=== PATIENT | female | born 1940 | race Two or more races ===

== ENCOUNTER 2021-01-07 11:06 | Emergency (ER) | payer OTHER ==
[~2021-01-07] VITALS: Ht 157.5 cm; Wt 81.6 kg
[~2021-01-07 11:06] MED LIST: ALEN70TA2; AMLO-489; BECL80AE9; BENA40TA; LEVO150T10; METO1TAB9; PREG75CA PO; PREMARIN; SIMV-8; TRAM50TA2
[2021-01-07] MEDS ORDERED: LORazepam 2MG/ML-1ML VIAL IV ONE (11:15)
[2021-01-07] MEDS ORDERED: SODIUM CHLORIDE 0.9% 1,000 ML IV ONE (11:15)
[2021-01-07 11:21] VITALS: BP 137/67
[2021-01-07 12:17] LABS: Basophils # (auto) 0 10 ^3/uL (0-0.2); Basophils % (auto) 0.5 % (0.0-2.0); Eosinophils # (auto) 0.1 10 ^3/uL (0-0.8); Eosinophils % (auto) 0.7 % (0.0-7.0); Hematocrit 41.5 % (36.0-46.0); Hemoglobin 14.9 g/dL (12.2-16.2); Lymphocytes # (auto) 1.7 10 ^3/uL (0.4-5.4); Lymphocytes % (auto) 18.2 % (10.0-50.0); Mean Corpuscular Hemoglobin 30.8 pg (28.0-32.0); Mean Corpuscular Hgb Conc. 35.8 g/dL (32.0-36.0); Monocytes # (auto) 0.9 10 ^3/uL (0-1.3); Monocytes % (auto) 9.8 % (0.0-12.0); Neutrophils # (auto) 6.7 10 ^3/uL (1.6-8.6); Neutrophils % (auto) 70.8 % (37.0-80.0); Platelet Count (auto) 312 10^3/uL (140-450); Red Blood Cells 4.82 10^6/uL (4.0-5.20); Red Cell Distribution Width 13.9 % (11.8-14.3); White Blood Cell 9.5 10^3/uL (4.4-10.8)
[2021-01-07 12:25] LABS: Albumin 3.9 g/dL (3.4-5.0); Anion Gap 14 (5-15); Blood Urea Nitrogen 17 mg/dL (7-18); Calcium 9.5 mg/dL (8.5-10.1); Carbon Dioxide 22 mmol/L (21-32); Chloride 96 mmol/L (98-107); Glucose 229 mg/dL (74-106); Sodium 132 mmol/L (136-145)
[2021-01-07 12:32] LABS: Alanine Aminotransferase 26 U/L (13-56); Alkaline Phosphatase 67 U/L (45-117); Aspartate Aminotransferase 24 U/L (15-37); BUN/Creatinine Ratio 16.7; Bilirubin, Total 0.6 mg/dL (0.2-1.0); GFR African American 67 mL/min; GFR Non-African American 56 mL/min; Total Protein 8.2 g/dL (6.4-8.2)
== END 2021-01-07 13:11 | disposition left against medical advice (07) ==
LOC: ER 11:06 → EDBD 11:06 → EDUNIT# 11:06 → ER 13:11
DX: F41.9 Anxiety disorder, unspecified (principal); E11.9 Type 2 diabetes mellitus without complications; E78.5 Hyperlipidemia, unspecified; I10 Essential (primary) hypertension; R42 Dizziness and giddiness
CPT/HCPCS: 36415; 80053; 84484; 85025; 85049; 93005; 99284; J7030

== ENCOUNTER 2021-04-15 23:48 | Inpatient (IN) | payer OTHER ==
[~2021-04-15] VITALS: Ht 165.1 cm; Wt 73.9 kg
[2021-04-16 01:03] LABS: Basophils # (auto) 0.2 10 ^3/uL (0-0.2); Basophils % (auto) 2.5 % (0.0-2.0); Eosinophils # (auto) 0.2 10 ^3/uL (0-0.8); Eosinophils % (auto) 1.9 % (0.0-7.0); Hematocrit 42.3 % (36.0-46.0); Lymphocytes # (auto) 2.4 10 ^3/uL (0.4-5.4); Lymphocytes % (auto) 24.7 % (10.0-50.0); Mean Corpuscular Hgb Conc. 35.4 g/dL (32.0-36.0); Mean Corpuscular Volume 87.6 fL (80.0-100.0); Monocytes # (auto) 0.6 10 ^3/uL (0-1.3); Monocytes % (auto) 5.8 % (0.0-12.0); Neutrophils # (auto) 6.4 10 ^3/uL (1.6-8.6); Neutrophils % (auto) 65.1 % (37.0-80.0); Nucleated Red Blood Cells % 0.1 %; Red Blood Cells 4.84 10^6/uL (4.0-5.20); Red Cell Distribution Width 15.4 % (11.8-14.3); White Blood Cell 9.9 10^3/uL (4.4-10.8)
[2021-04-16 01:30] LABS: Anion Gap 16 (5-15); Blood Urea Nitrogen 9 mg/dL (7-18); Calcium 10.6 mg/dL (8.5-10.1); Carbon Dioxide 19 mmol/L (21-32); Chloride 98 mmol/L (98-107); Glucose 246 mg/dL (74-106); Sodium 133 mmol/L (136-145)
[2021-04-16 01:32] LABS: Alanine Aminotransferase 33 U/L (13-56); Aspartate Aminotransferase 25 U/L (15-37); BUN/Creatinine Ratio 8.8; GFR African American 67 mL/min; GFR Non-African American 56 mL/min
[2021-04-16 01:36] LABS: Alkaline Phosphatase 70 U/L (45-117); Bilirubin, Total 0.7 mg/dL (0.2-1.0); Total Protein 8.5 g/dL (6.4-8.2)
[2021-04-16 01:47] LABS: Potassium 2.8 mmol/L (3.5-5.1)
[2021-04-16] MEDS ORDERED: METOCLOPRAMIDE HCL 5MG/ml INJ 2ml VIAL IV STA (03:20)
[2021-04-16] MEDS ORDERED: ACETAMINOPHEN 325 MG TAB PO STA (03:42)
[2021-04-16] MEDS: POTASSIUM CHL 20MEQ/100ML 100 ML IV SCH ×4 (05:41→17:50)
[2021-04-16] MEDS ORDERED: HYDROcodone-ACET 5/325MG TAB ONE (06:50)
[2021-04-16] MEDS ORDERED: SODIUM CHLORIDE 0.9% 1,000 ML IV ONE ×2 (11:30→13:30)
[2021-04-16] MEDS ORDERED: MORPHINE SULFATE INJECTION 2 MG/ML SYRG IV PRN ×3 (11:30→13:30)
[2021-04-16] MEDS ORDERED: POTASSIUM CHL 20MEQ/100ML 100 ML IV SCH (11:30)
[2021-04-16] MEDS ORDERED: NITROGLYCERIN 0.4 MG SL TAB SL PRN ×2 (11:30→13:30)
[2021-04-16 13:09] LABS: Albumin 3.1 g/dL (3.4-5.0); BUN/Creatinine Ratio 10.7; Potassium 3.5 mmol/L (3.5-5.1)
[2021-04-16 13:12] LABS: Bilirubin, Total 0.4 mg/dL (0.2-1.0); Total Protein 6.9 g/dL (6.4-8.2)
[2021-04-16] MEDS: MAGNESIUM SULFATE 1GM/100ML 100 ML IV ONE ×2 (13:23→14:58)
[2021-04-16] MEDS ORDERED: ACETAMINOPHEN 325 MG TAB PO PRN (13:30)
[2021-04-16] MEDS ORDERED: TEMAZEPAM 15 MG CAP PO PRN (13:30)
[2021-04-16] MEDS ORDERED: ONDANSETRON HCL 4 MG/2 ML VIAL IV PRN (13:30)
[2021-04-16] MEDS ORDERED: SALINE 0.65 % NASAL SPRAY 45ML BOTTLE EACHNOSTRI ONE (13:30)
[2021-04-16] MEDS ORDERED: ENOXAPARIN SOD 40 MG/0.4 ML SYRINGE SC ONE (13:30)
[2021-04-16] MEDS ORDERED: DOCUSATE SOD 100 MG CAP PO PRN (13:30)
[2021-04-16] MEDS ORDERED: METOPROLOL SUCCINATE XL 50 MG TAB PO ONE (13:30)
[2021-04-16] MEDS ORDERED: hydrALAZINE HCL 20 MG/ML VL IV PRN (13:30)
[2021-04-16] MEDS ORDERED: DEXTROSE (50%) 50ML SYRG IV PRN (13:30)
[2021-04-16 15:31] LABS: Urine Bacteria FEW /hpf (None Seen); Urine Blood Negative /uL (Negative); Urine WBC 2 /hpf (0 - 5)
[2021-04-16] MEDS: SOD CHL 0.9%/ KCL 20MEQ 1,000 ML IV SCH (16:20)
[2021-04-16 17:23] VITALS: BP 148/81
[2021-04-16] MEDS ORDERED: GABA100C9 PO (17:57)
[2021-04-16] MEDS ORDERED: HYDR12.56 PO (17:57)
[2021-04-16] MEDS ORDERED: VENL1TAB97 PO (17:57)
[2021-04-16] MEDS ORDERED: ROSU40TA PO (17:57)
[2021-04-16] MEDS ORDERED: LEVO100T8 PO (17:57)
[2021-04-16] MEDS ORDERED: SITA100T7 PO (17:57)
[2021-04-16] MEDS ORDERED: AMLO-489 PO (17:57)
[2021-04-16] MEDS ORDERED: CLON0.1T PO (17:57)
[2021-04-16] MEDS ORDERED: PRED20TA2 PO (17:57)
[2021-04-16] MEDS ORDERED: FERR324T25 PO (17:57)
[2021-04-16] MEDS: SALINE 0.65 % NASAL SPRAY 45ML BOTTLE EACHNOSTRI SCH ×2 (18:00→23:06)
[2021-04-16] MEDS ORDERED: POTASSIUM CHL 20 Meq TABLET PO ONE (18:15)
[2021-04-16] MEDS: InsuLIN REG 1unit/0.01ml Soln (100units/ml) SC SCH ×2 (18:17→23:07)
[2021-04-16] MEDS: ACCU-CHEK COMFORT CURVE STRIP VI SCH ×2 (18:23→23:08)
[2021-04-16] MEDS: CALCIUM W/VIT D (600MG/400IU) TAB PO SCH (18:35)
[2021-04-16] MEDS: FUROSEMIDE 20 MG/2 ML VIAL IV SCH (18:35)
[2021-04-16] MEDS ORDERED: AZITHROMYCIN 500MG/ 250ML 250 ML IV ONE (19:45)
[2021-04-16 22:00] VITALS: BP 113/62
[2021-04-16 22:00] LABS: Alcohol, Urine < 3.0 mg/dL (0-10); Amphetamine Screen, Urine NEGATIVE (NEGATIVE); Barbiturate Scree,Urine NEGATIVE (NEGATIVE); Benzodiazephine Screen, Urine NEGATIVE (NEGATIVE); Cannabinoid Screen, Urine NEGATIVE (NEGATIVE); Cocaine Screen, Urine NEGATIVE (NEGATIVE); Creatinine, Urine 22 mg/dL (30.0-125.0); Opiate Scree,Urine NEGATIVE (NEGATIVE); Phencyclidine Screen, Urine NEGATIVE (NEGATIVE); Sodium Urine 129 mmol/L (40-220)
[2021-04-16] MEDS: FAMOTIDINE (10MG/ML) 2ML VL IV SCH (23:05)
[2021-04-17] MEDS: SOD CHL 0.9%/ KCL 20MEQ 1,000 ML IV SCH ×3 (01:51→23:35)
[2021-04-17] MEDS: HYDROcodone-ACET 5/325MG TAB PO PRN ×2 (02:40→21:34)
[2021-04-17 05:30] VITALS: BP 118/66
[2021-04-17] MEDS: SALINE 0.65 % NASAL SPRAY 45ML BOTTLE EACHNOSTRI SCH ×4 (06:00→21:34)
[2021-04-17] MEDS: FUROSEMIDE 20 MG/2 ML VIAL IV SCH ×2 (06:19→18:22)
[2021-04-17] MEDS: InsuLIN REG 1unit/0.01ml Soln (100units/ml) SC SCH ×4 (06:19→21:36)
[2021-04-17 06:20] LABS: Basophils # (auto) 0.1 10 ^3/uL (0-0.2); Basophils % (auto) 0.8 % (0.0-2.0); Eosinophils # (auto) 0.1 10 ^3/uL (0-0.8); Eosinophils % (auto) 2.1 % (0.0-7.0); Hemoglobin 12.7 g/dL (12.2-16.2); Lymphocytes # (auto) 2.3 10 ^3/uL (0.4-5.4); Lymphocytes % (auto) 33.2 % (10.0-50.0); Mean Corpuscular Hemoglobin 30.1 pg (28.0-32.0); Mean Corpuscular Hgb Conc. 34.4 g/dL (32.0-36.0); Mean Corpuscular Volume 87.5 fL (80.0-100.0); Monocytes # (auto) 0.5 10 ^3/uL (0-1.3); Neutrophils # (auto) 3.8 10 ^3/uL (1.6-8.6); Neutrophils % (auto) 55.9 % (37.0-80.0); Nucleated Red Blood Cells % 0.1 %; Red Blood Cells 4.23 10^6/uL (4.0-5.20); Red Cell Distribution Width 15.3 % (11.8-14.3); White Blood Cell 6.8 10^3/uL (4.4-10.8)
[2021-04-17] MEDS: ACCU-CHEK COMFORT CURVE STRIP VI SCH ×4 (06:22→21:35)
[2021-04-17 06:32] LABS: INR 1.04 (0.9-1.15); Partial Thromboplastin Time 26.9 sec (23.6-33.0)
[2021-04-17 06:33] LABS: % Iron Saturation 13.9 % (15-50)
[2021-04-17 06:38] LABS: Chloride 104 mmol/L (98-107); Potassium 3.5 mmol/L (3.5-5.1); Sodium 137 mmol/L (136-145)
[2021-04-17 06:49] LABS: Alanine Aminotransferase 26 U/L (13-56); Albumin 3.1 g/dL (3.4-5.0); Alkaline Phosphatase 55 U/L (45-117); Anion Gap 7 (5-15); Aspartate Aminotransferase 20 U/L (15-37); BUN/Creatinine Ratio 18.8; Bilirubin, Total 0.4 mg/dL (0.2-1.0); Blood Urea Nitrogen 12 mg/dL (7-18); Calcium 8.6 mg/dL (8.5-10.1); Carbon Dioxide 26 mmol/L (21-32); Creatine Kinase IFCC 21 U/L (26-192); GFR African American 115 mL/min; GFR Non-African American 95 mL/min; Glucose 129 mg/dL (74-106); Magnesium 2.5 mg/dL (1.6-2.6); Phosphorus 2.8 mg/dL (2.5-4.90); Total Protein 6.4 g/dL (6.4-8.2); Uric Acid 2.5 mg/dL (2.6-6.0)
[2021-04-17 09:08] VITALS: BP 118/67
[2021-04-17] MEDS: AZITHROMYCIN 500MG/ 250ML 250 ML IV SCH (09:24)
[2021-04-17] MEDS: FAMOTIDINE (10MG/ML) 2ML VL IV SCH ×2 (09:24→21:34)
[2021-04-17] MEDS: CALCIUM W/VIT D (600MG/400IU) TAB PO SCH ×2 (09:24→18:22)
[2021-04-17] MEDS: ISOSORBIDE MONONITRATE ER 60 MG TAB PO SCH (09:25)
[2021-04-17] MEDS: BENAZEPRIL HCL 10 MG TAB PO SCH (09:25)
[2021-04-17] MEDS: ENOXAPARIN SOD 40 MG/0.4 ML SYRINGE SC SCH (09:26)
[2021-04-17] MEDS: METOPROLOL SUCCINATE XL 50 MG TAB PO SCH (09:26)
[2021-04-17] MEDS ORDERED: CALCIUM W/VIT D (600MG/400IU) TAB PO SCH (10:00)
[2021-04-17 13:06] VITALS: BP 114/74
[2021-04-17 17:00] VITALS: BP 132/69
[2021-04-17 21:00] VITALS: BP 132/69
[2021-04-17 22:00] VITALS: BP 106/57
[2021-04-18 05:00] VITALS: BP 129/66
[2021-04-18] MEDS: FUROSEMIDE 20 MG/2 ML VIAL IV SCH ×2 (05:53→17:51)
[2021-04-18] MEDS: SALINE 0.65 % NASAL SPRAY 45ML BOTTLE EACHNOSTRI SCH ×4 (05:53→21:38)
[2021-04-18] MEDS: ACCU-CHEK COMFORT CURVE STRIP VI SCH ×4 (05:54→21:38)
[2021-04-18] MEDS: InsuLIN REG 1unit/0.01ml Soln (100units/ml) SC SCH ×4 (05:57→21:54)
[2021-04-18 06:07] LABS: BUN/Creatinine Ratio 20.7; Calcium 8.9 mg/dL (8.5-10.1); Magnesium 2.2 mg/dL (1.6-2.6); Potassium 4.1 mmol/L (3.5-5.1)
[2021-04-18 06:37] LABS: Hematocrit 38.4 % (36.0-46.0); Hemoglobin 13.1 g/dL (12.2-16.2); Mean Corpuscular Hemoglobin 30.3 pg (28.0-32.0); Mean Corpuscular Volume 89.1 fL (80.0-100.0); Red Blood Cells 4.31 10^6/uL (4.0-5.20); Red Cell Distribution Width 15.1 % (11.8-14.3); White Blood Cell 8.7 10^3/uL (4.4-10.8)
[2021-04-18 06:46] LABS: Basophils % (manual) 0 (0.0-2.0); Blast Cells 0; Myelocytes % 0; Promyelocytes % 0; Reactive Lymphocytes 0
[2021-04-18 09:00] VITALS: BP 124/73
[2021-04-18] MEDS: FAMOTIDINE (10MG/ML) 2ML VL IV SCH ×2 (10:00→21:38)
[2021-04-18] MEDS: AZITHROMYCIN 500MG/ 250ML 250 ML IV SCH (10:00)
[2021-04-18] MEDS: CALCIUM W/VIT D (600MG/400IU) TAB PO SCH ×2 (10:00→17:51)
[2021-04-18] MEDS: ISOSORBIDE MONONITRATE ER 60 MG TAB PO SCH (10:01)
[2021-04-18] MEDS: BENAZEPRIL HCL 10 MG TAB PO SCH (10:01)
[2021-04-18] MEDS: METOPROLOL SUCCINATE XL 50 MG TAB PO SCH (10:01)
[2021-04-18] MEDS: ENOXAPARIN SOD 40 MG/0.4 ML SYRINGE SC SCH (10:02)
[2021-04-18 11:50] LABS: Band Neutrophils % (manual) 4; Eosinophils % (manual) 2 (0-7); Lymphocytes % (manual) 26 (10.0-50.0); Metamyelocytes % 1; Monocytes % (manual) 7 (0-12)
[2021-04-18 13:00] VITALS: BP 105/60
[2021-04-18] MEDS ORDERED: LEVOTHYROXINE SODIUM 100 MCG/5 ML INJ IV ONE (15:45)
[2021-04-18 17:00] VITALS: BP 105/61
[2021-04-18 22:00] VITALS: BP 106/65
[2021-04-18] MEDS: SOD CHL 0.9%/ KCL 20MEQ 1,000 ML IV SCH (23:20)
[2021-04-19 05:00] VITALS: BP 128/71
[2021-04-19] MEDS: SALINE 0.65 % NASAL SPRAY 45ML BOTTLE EACHNOSTRI SCH ×4 (06:02→21:39)
[2021-04-19] MEDS: FUROSEMIDE 20 MG/2 ML VIAL IV SCH ×2 (06:02→18:00)
[2021-04-19] MEDS: InsuLIN REG 1unit/0.01ml Soln (100units/ml) SC SCH ×4 (06:03→21:40)
[2021-04-19] MEDS: CALCIUM W/VIT D (600MG/400IU) TAB PO SCH ×2 (06:03→18:20)
[2021-04-19] MEDS: ACCU-CHEK COMFORT CURVE STRIP VI SCH ×4 (06:04→21:39)
[2021-04-19] MEDS ORDERED: LEVOTHYROXINE SODIUM 50 MCG TAB PO SCH (07:00)
[2021-04-19] MEDS ORDERED: LEVOTHYROXINE SODIUM 25 MCG TAB PO SCH (07:00)
[2021-04-19] MEDS: SOD CHL 0.9%/ KCL 20MEQ 1,000 ML IV SCH (08:10)
[2021-04-19 09:00] VITALS: BP 124/79
[2021-04-19 10:07] LABS: Free T4 (Free Thyroxine) 0.37 ng/dL (0.89-1.76)
[2021-04-19 10:08] LABS: Free T3 1.2 pg/mL (2.3-4.2)
[2021-04-19] MEDS: FAMOTIDINE (10MG/ML) 2ML VL IV SCH ×2 (10:39→21:39)
[2021-04-19] MEDS: AZITHROMYCIN 500MG/ 250ML 250 ML IV SCH (10:40)
[2021-04-19] MEDS: ISOSORBIDE MONONITRATE ER 60 MG TAB PO SCH (10:44)
[2021-04-19] MEDS: BENAZEPRIL HCL 10 MG TAB PO SCH (10:44)
[2021-04-19] MEDS: ENOXAPARIN SOD 40 MG/0.4 ML SYRINGE SC SCH (10:45)
[2021-04-19] MEDS: METOPROLOL SUCCINATE XL 50 MG TAB PO SCH (10:46)
[2021-04-19 13:00] VITALS: BP 97/56
[2021-04-19] MEDS: HYDROcodone-ACET 5/325MG TAB PO PRN (15:29)
[2021-04-19 17:00] VITALS: BP 119/74
[2021-04-19 22:00] VITALS: BP 120/76
[2021-04-20 05:30] VITALS: BP 117/65
[2021-04-20 05:42] LABS: Basophils # (auto) 0 10 ^3/uL (0-0.2); Basophils % (auto) 0.8 % (0.0-2.0); Eosinophils # (auto) 0.2 10 ^3/uL (0-0.8); Hematocrit 32.1 % (36.0-46.0); Hemoglobin 11.4 g/dL (12.2-16.2); Lymphocytes # (auto) 1.9 10 ^3/uL (0.4-5.4); Lymphocytes % (auto) 33.7 % (10.0-50.0); Mean Corpuscular Hemoglobin 31.1 pg (28.0-32.0); Mean Corpuscular Hgb Conc. 35.4 g/dL (32.0-36.0); Mean Corpuscular Volume 87.8 fL (80.0-100.0); Monocytes # (auto) 0.5 10 ^3/uL (0-1.3); Monocytes % (auto) 8.3 % (0.0-12.0); Neutrophils # (auto) 3.1 10 ^3/uL (1.6-8.6); Neutrophils % (auto) 54.2 % (37.0-80.0); Red Blood Cells 3.66 10^6/uL (4.0-5.20); Red Cell Distribution Width 15.3 % (11.8-14.3); White Blood Cell 5.6 10^3/uL (4.4-10.8)
[2021-04-20 06:03] LABS: Potassium 3.7 mmol/L (3.5-5.1)
[2021-04-20] MEDS: SOD CHL 0.9%/ KCL 20MEQ 1,000 ML IV SCH ×2 (06:06→10:50)
[2021-04-20] MEDS: SALINE 0.65 % NASAL SPRAY 45ML BOTTLE EACHNOSTRI SCH ×4 (06:06→21:31)
[2021-04-20] MEDS: LEVOTHYROXINE SODIUM 100 MCG TAB PO SCH (06:07)
[2021-04-20] MEDS: FUROSEMIDE 20 MG/2 ML VIAL IV SCH ×2 (06:07→18:39)
[2021-04-20] MEDS: ACCU-CHEK COMFORT CURVE STRIP VI SCH ×4 (06:07→21:35)
[2021-04-20] MEDS: InsuLIN REG 1unit/0.01ml Soln (100units/ml) SC SCH ×4 (06:09→21:35)
[2021-04-20 06:12] LABS: BUN/Creatinine Ratio 16.9; Magnesium 2.2 mg/dL (1.6-2.6)
[2021-04-20 09:00] VITALS: BP 120/65
[2021-04-20] MEDS: FAMOTIDINE (10MG/ML) 2ML VL IV SCH ×2 (10:12→21:31)
[2021-04-20] MEDS: CALCIUM W/VIT D (600MG/400IU) TAB PO SCH ×2 (10:12→18:40)
[2021-04-20] MEDS: METOPROLOL SUCCINATE XL 50 MG TAB PO SCH (10:13)
[2021-04-20] MEDS: BENAZEPRIL HCL 10 MG TAB PO SCH (10:13)
[2021-04-20] MEDS: ISOSORBIDE MONONITRATE ER 60 MG TAB PO SCH (10:13)
[2021-04-20] MEDS: ENOXAPARIN SOD 40 MG/0.4 ML SYRINGE SC SCH (12:49)
[2021-04-20 13:00] VITALS: BP 133/67
[2021-04-20] MEDS ORDERED: LORazepam 2MG/ML-1ML VIAL IV PRN (21:15)
[2021-04-20 22:00] VITALS: BP 106/50
[2021-04-21] MEDS: SOD CHL 0.9%/ KCL 20MEQ 1,000 ML IV SCH ×2 (00:08→22:21)
[2021-04-21 01:40] VITALS: BP 106/50
[2021-04-21 04:48] VITALS: BP 104/49
[2021-04-21] MEDS: SALINE 0.65 % NASAL SPRAY 45ML BOTTLE EACHNOSTRI SCH ×4 (06:21→22:22)
[2021-04-21] MEDS: InsuLIN REG 1unit/0.01ml Soln (100units/ml) SC SCH ×4 (06:27→22:27)
[2021-04-21] MEDS: LEVOTHYROXINE SODIUM 100 MCG TAB PO SCH (06:28)
[2021-04-21] MEDS: FUROSEMIDE 20 MG/2 ML VIAL IV SCH ×2 (06:32→18:36)
[2021-04-21] MEDS: ACCU-CHEK COMFORT CURVE STRIP VI SCH ×4 (06:32→22:28)
[2021-04-21 09:00] VITALS: BP 118/62
[2021-04-21] MEDS: FAMOTIDINE (10MG/ML) 2ML VL IV SCH ×2 (10:11→22:22)
[2021-04-21] MEDS: CALCIUM W/VIT D (600MG/400IU) TAB PO SCH ×2 (10:11→18:36)
[2021-04-21] MEDS: METOPROLOL SUCCINATE XL 50 MG TAB PO SCH (10:14)
[2021-04-21] MEDS: BENAZEPRIL HCL 10 MG TAB PO SCH (10:14)
[2021-04-21] MEDS: ENOXAPARIN SOD 40 MG/0.4 ML SYRINGE SC SCH (10:15)
[2021-04-21] MEDS: ISOSORBIDE MONONITRATE ER 60 MG TAB PO SCH (10:16)
[2021-04-21 13:00] VITALS: BP 140/35
[2021-04-21 17:00] VITALS: BP 104/65
[2021-04-21 21:35] VITALS: BP 118/68
[2021-04-21] MEDS: DONEPEZIL HYDROCHLORIDE 5 MG TAB PO SCH (22:23)
[2021-04-22] MEDS: SOD CHL 0.9%/ KCL 20MEQ 1,000 ML IV SCH ×2 (02:42→23:49)
[2021-04-22 04:48] VITALS: BP 100/56
[2021-04-22] MEDS ORDERED: ALENDRONATE SODIUM 10 MG TAB PO SCH (06:00)
[2021-04-22] MEDS: SALINE 0.65 % NASAL SPRAY 45ML BOTTLE EACHNOSTRI SCH ×4 (06:28→21:40)
[2021-04-22] MEDS: FUROSEMIDE 20 MG/2 ML VIAL IV SCH ×2 (06:28→18:00)
[2021-04-22] MEDS: LEVOTHYROXINE SODIUM 100 MCG TAB PO SCH (06:29)
[2021-04-22] MEDS: ACCU-CHEK COMFORT CURVE STRIP VI SCH ×4 (06:30→21:58)
[2021-04-22] MEDS: InsuLIN REG 1unit/0.01ml Soln (100units/ml) SC SCH ×4 (06:31→22:01)
[2021-04-22 09:00] VITALS: BP 112/45
[2021-04-22] MEDS: CALCIUM W/VIT D (600MG/400IU) TAB PO SCH ×2 (10:30→18:00)
[2021-04-22] MEDS: FAMOTIDINE (10MG/ML) 2ML VL IV SCH ×2 (10:30→21:40)
[2021-04-22] MEDS: BENAZEPRIL HCL 10 MG TAB PO SCH (10:34)
[2021-04-22] MEDS: ISOSORBIDE MONONITRATE ER 60 MG TAB PO SCH (10:34)
[2021-04-22] MEDS: METOPROLOL SUCCINATE XL 50 MG TAB PO SCH (10:35)
[2021-04-22] MEDS: ENOXAPARIN SOD 40 MG/0.4 ML SYRINGE SC SCH (10:35)
[2021-04-22 13:00] VITALS: BP 113/59
[2021-04-22 17:00] VITALS: BP 115/64
[2021-04-22] MEDS ORDERED: LORazepam 2MG/ML-1ML VIAL IV PRN (20:15)
[2021-04-22] MEDS ORDERED: VENLAFAXINE HCL 37.5MG TABLET PO ONE (20:30)
[2021-04-22] MEDS: DONEPEZIL HYDROCHLORIDE 5 MG TAB PO SCH (21:39)
[2021-04-22 22:00] VITALS: BP 107/54
[2021-04-23 05:00] VITALS: BP 125/60
[2021-04-23] MEDS: SALINE 0.65 % NASAL SPRAY 45ML BOTTLE EACHNOSTRI SCH ×4 (05:25→21:57)
[2021-04-23] MEDS: FUROSEMIDE 20 MG/2 ML VIAL IV SCH (05:26)
[2021-04-23] MEDS: SOD CHL 0.9%/ KCL 20MEQ 1,000 ML IV SCH (05:30)
[2021-04-23] MEDS: ACCU-CHEK COMFORT CURVE STRIP VI SCH ×4 (06:23→21:57)
[2021-04-23] MEDS: InsuLIN REG 1unit/0.01ml Soln (100units/ml) SC SCH ×3 (06:24→18:17)
[2021-04-23] MEDS: LEVOTHYROXINE SODIUM 100 MCG TAB PO SCH (06:24)
[2021-04-23 08:00] VITALS: BP 146/70
[2021-04-23] MEDS: CALCIUM W/VIT D (600MG/400IU) TAB PO SCH ×2 (08:38→18:15)
[2021-04-23 09:00] VITALS: BP 146/70
[2021-04-23] MEDS: FAMOTIDINE (10MG/ML) 2ML VL IV SCH (09:42)
[2021-04-23] MEDS: BENAZEPRIL HCL 10 MG TAB PO SCH (09:43)
[2021-04-23] MEDS: ISOSORBIDE MONONITRATE ER 60 MG TAB PO SCH (09:43)
[2021-04-23] MEDS: ENOXAPARIN SOD 40 MG/0.4 ML SYRINGE SC SCH (09:44)
[2021-04-23] MEDS: METOPROLOL SUCCINATE XL 50 MG TAB PO SCH (09:44)
[2021-04-23] MEDS ORDERED: VENLAFAXINE HCL 37.5MG TABLET PO SCH (10:00)
[2021-04-23] MEDS ORDERED: POTASSIUM CHL 20 Meq TABLET PO ONE (12:45)
[2021-04-23 13:00] VITALS: BP 133/63
[2021-04-23 16:45] VITALS: BP 122/63
[2021-04-23] MEDS: metFORMIN HYDROCHLORIDE 500 MG TAB PO SCH (18:16)
[2021-04-23 22:00] VITALS: BP 125/71
[2021-04-23] MEDS: DONEPEZIL HYDROCHLORIDE 5 MG TAB PO SCH (22:07)
[2021-04-24] VITALS (7 sets, daily range): BP systolic 123–137; BP diastolic 60–76
[2021-04-24] MEDS: SALINE 0.65 % NASAL SPRAY 45ML BOTTLE EACHNOSTRI SCH ×4 (06:00→21:55)
[2021-04-24] MEDS: LEVOTHYROXINE SODIUM 100 MCG TAB PO SCH (06:52)
[2021-04-24] MEDS: ACCU-CHEK COMFORT CURVE STRIP VI SCH ×4 (06:52→21:59)
[2021-04-24] MEDS: InsuLIN REG 1unit/0.01ml Soln (100units/ml) SC SCH ×3 (06:56→17:15)
[2021-04-24] MEDS: metFORMIN HYDROCHLORIDE 500 MG TAB PO SCH ×2 (08:13→17:08)
[2021-04-24] MEDS: CALCIUM W/VIT D (600MG/400IU) TAB PO SCH ×2 (08:13→17:07)
[2021-04-24] MEDS: VENLAFAXINE HCL 37.5MG TABLET PO SCH (09:27)
[2021-04-24] MEDS: ISOSORBIDE MONONITRATE ER 60 MG TAB PO SCH (09:28)
[2021-04-24] MEDS: BENAZEPRIL HCL 10 MG TAB PO SCH (09:28)
[2021-04-24] MEDS: ENOXAPARIN SOD 40 MG/0.4 ML SYRINGE SC SCH (09:29)
[2021-04-24] MEDS: METOPROLOL SUCCINATE XL 50 MG TAB PO SCH (09:29)
[2021-04-24] MEDS: DONEPEZIL HYDROCHLORIDE 5 MG TAB PO SCH (21:55)
[2021-04-25 05:00] VITALS: BP 104/62
[2021-04-25] MEDS: LEVOTHYROXINE SODIUM 100 MCG TAB PO SCH (06:20)
[2021-04-25] MEDS: ACCU-CHEK COMFORT CURVE STRIP VI SCH ×2 (06:20→12:25)
[2021-04-25] MEDS: SALINE 0.65 % NASAL SPRAY 45ML BOTTLE EACHNOSTRI SCH ×2 (06:20→12:25)
[2021-04-25] MEDS: InsuLIN REG 1unit/0.01ml Soln (100units/ml) SC SCH ×2 (06:36→12:25)
[2021-04-25 08:00] VITALS: BP 115/64
[2021-04-25] MEDS: CALCIUM W/VIT D (600MG/400IU) TAB PO SCH (08:08)
[2021-04-25] MEDS: metFORMIN HYDROCHLORIDE 500 MG TAB PO SCH (08:09)
[2021-04-25 09:00] VITALS: BP 115/64
[2021-04-25] MEDS: VENLAFAXINE HCL 37.5MG TABLET PO SCH (10:37)
[2021-04-25] MEDS: ISOSORBIDE MONONITRATE ER 60 MG TAB PO SCH (10:37)
[2021-04-25] MEDS: ENOXAPARIN SOD 40 MG/0.4 ML SYRINGE SC SCH (10:38)
[2021-04-25] MEDS: METOPROLOL SUCCINATE XL 50 MG TAB PO SCH (10:38)
[2021-04-25] MEDS: BENAZEPRIL HCL 10 MG TAB PO SCH (10:38)
[2021-04-25 13:00] VITALS: BP 108/63
[2021-04-25] MEDS ORDERED: METF-370 PO (16:19)
== END 2021-04-25 17:35 | disposition home health service (06) | DRG 643 ==
LOC: ER 23:48 → EDBD 23:48 → TELE 04-16 11:11 → TELE-WESTW 04-16 17:15
PROVIDERS: ADMIT Hospitalist; ATTEND Internal Medicine
PROC: 5A09557 Assistance with Respiratory Ventilation, Greater than 96 Consecutive Hours, Continuous Positive Airway Pressure (ICD-10-PCS; principal; 2021-04-17)
DX: E03.9 Hypothyroidism, unspecified (principal); I50.33 Acute on chronic diastolic (congestive) heart failure; E87.1 Hypo-osmolality and hyponatremia; E11.21 Type 2 diabetes mellitus with diabetic nephropathy; I11.0 Hypertensive heart disease with heart failure; E11.42 Type 2 diabetes mellitus with diabetic polyneuropathy; E66.01 Morbid (severe) obesity due to excess calories; E78.5 Hyperlipidemia, unspecified; E87.6 Hypokalemia; Z20.822 Contact with and (suspected) exposure to COVID-19; E88.09 Other disorders of plasma-protein metabolism, not elsewhere classified; G89.4 Chronic pain syndrome; K21.9 Gastro-esophageal reflux disease without esophagitis; K29.70 Gastritis, unspecified, without bleeding; M81.0 Age-related osteoporosis without current pathological fracture; N25.89 Other disorders resulting from impaired renal tubular function; F02.80 Dementia in other diseases classified elsewhere, unspecified severity, without behavioral disturbance, psychotic disturbance, mood disturbance, and anxiety; F41.9 Anxiety disorder, unspecified; G47.33 Obstructive sleep apnea (adult) (pediatric); F32.9 Major depressive disorder, single episode, unspecified; Z68.21 Body mass index [BMI] 21.0-21.9, adult; Z79.899 Other long term (current) drug therapy
CPT/HCPCS: 36415; 70450; 70551; 71045; 80048; 80053; 80307; 81001; 82306; 82550; 82570; 82607; 82962; 83036; 83540; 83550; 83735; 83880; 83970; 84100; 84133; 84156; 84300; 84439; 84443; 84481; 84484; 84550; 85007; 85025; 85027; 85610; 85652; 85730; 87040; 87081; 87086; 87426; 93005; 93306; 94660; 95819; 96365; 96366; 96375; 97163; G0378; J1815; J3480; J3490

== ENCOUNTER 2021-07-20 11:04 | Emergency (ER) | payer OTHER ==
[~2021-07-20] VITALS: Ht 160 cm; Wt 70.3 kg
[~2021-07-20 11:04] MED LIST changes: -ALEN70TA2; -AMLO-489; +AMLO-489 PO; -BECL80AE9; -BENA40TA; +CLON0.1T PO; +FERR324T25 PO; +GABA100C9 PO; +HYDR12.56 PO; +LEVO100T8 PO; -LEVO150T10; +METF-370 PO; -METO1TAB9; +PRED20TA2 PO; -PREG75CA PO; -PREMARIN; +ROSU40TA PO; -SIMV-8; +SITA100T7 PO; -TRAM50TA2; +VENL1TAB97 PO
[2021-07-20 13:09] LABS: Urine Bacteria FEW /hpf (None Seen); Urine Blood Negative /uL (Negative); Urine Specific Gravity 1.007 (1.001-1.035); Urine WBC 3 /hpf (0 - 5)
[2021-07-20 13:57] VITALS: BP 145/51
[2021-07-20] MEDS ORDERED: HYDROcodone-ACET 5/325MG TAB PO ONE (15:00)
[2021-07-20] MEDS ORDERED: TRAM-297 PO (15:06)
== END 2021-07-20 15:12 | disposition home or self-care (01) ==
LOC: ER 11:04
DX: M54.50 Low back pain, unspecified (principal); M48.061 Spinal stenosis, lumbar region without neurogenic claudication; M47.816 Spondylosis without myelopathy or radiculopathy, lumbar region; I10 Essential (primary) hypertension; E11.9 Type 2 diabetes mellitus without complications; E78.5 Hyperlipidemia, unspecified; E03.9 Hypothyroidism, unspecified; Z79.899 Other long term (current) drug therapy
CPT/HCPCS: 72131; 81001

== ENCOUNTER 2022-01-31 10:19 | Emergency (ER) | payer OTHER ==
[~2022-01-31] VITALS: Ht 160 cm; Wt 69.0 kg
[~2022-01-31 10:19] MED LIST changes: +TRAM-297 PO
[2022-01-31 10:46] VITALS: BP 119/64
[2022-01-31] MEDS ORDERED: LEVO-28 PO (11:30)
== END 2022-01-31 14:44 | disposition home or self-care (01) ==
LOC: ER 10:19
DX: U07.1 COVID-19 (principal); J06.9 Acute upper respiratory infection, unspecified; I10 Essential (primary) hypertension; E11.9 Type 2 diabetes mellitus without complications; E78.5 Hyperlipidemia, unspecified; E03.9 Hypothyroidism, unspecified; Z79.2 Long term (current) use of antibiotics; Z79.899 Other long term (current) drug therapy
CPT/HCPCS: 36415; 71045

== ENCOUNTER 2022-02-05 17:41 | Emergency (ER) | payer OTHER ==
[~2022-02-05] VITALS: Ht 160 cm; Wt 61.3 kg
[~2022-02-05 17:41] MED LIST changes: +LEVO-28 PO
[2022-02-05 17:55] VITALS: BP 134/72
[2022-02-05 21:02] LABS: Basophils # (auto) 0 10 ^3/uL (0-0.2); Basophils % (auto) 0.5 % (0.0-2.0); Eosinophils # (auto) 0 10 ^3/uL (0-0.8); Eosinophils % (auto) 0.5 % (0.0-7.0); Hematocrit 42.5 % (36.0-46.0); Lymphocytes # (auto) 1.6 10 ^3/uL (0.4-5.4); Lymphocytes % (auto) 24.5 % (10.0-50.0); Mean Corpuscular Hemoglobin 26.6 pg (28.0-32.0); Mean Corpuscular Hgb Conc. 32.9 g/dL (32.0-36.0); Mean Corpuscular Volume 81.1 fL (80.0-100.0); Monocytes # (auto) 0.7 10 ^3/uL (0-1.3); Monocytes % (auto) 10.3 % (0.0-12.0); Neutrophils # (auto) 4.2 10 ^3/uL (1.6-8.6); Neutrophils % (auto) 64.2 % (37.0-80.0); Nucleated Red Blood Cells % 0.1 %; Red Blood Cells 5.24 10^6/uL (4.0-5.20); Red Cell Distribution Width 16.5 % (11.8-14.3); White Blood Cell 6.5 10^3/uL (4.4-10.8)
[2022-02-05 21:16] LABS: Albumin 4.1 g/dL (3.4-5.0); BUN/Creatinine Ratio 19.8; Calcium 9.4 mg/dL (8.5-10.1); Magnesium 2.2 mg/dL (1.6-2.6); Potassium 3.3 mmol/L (3.5-5.1)
[2022-02-05 21:19] LABS: Bilirubin, Total 0.8 mg/dL (0.2-1.0); Total Protein 8.1 g/dL (6.4-8.2)
== END 2022-02-06 01:48 | disposition left against medical advice (07) ==
LOC: ER 17:41
DX: U07.1 COVID-19 (principal); R11.2 Nausea with vomiting, unspecified; R51.9 Headache, unspecified; R07.89 Other chest pain; Z53.21 Procedure and treatment not carried out due to patient leaving prior to being seen by health care provider
CPT/HCPCS: 36415; 71045; 80053; 83735; 84443; 84484; 85025; 93005

== ENCOUNTER 2022-05-18 19:03 | Inpatient (IN) | payer OTHER ==
[~2022-05-18] VITALS: Ht 165.1 cm; Wt 70.5 kg
[2022-05-18 23:52] LABS: Basophils # (auto) 0 10 ^3/uL (0-0.2); Basophils % (auto) 0.5 % (0.0-2.0); Eosinophils # (auto) 0.1 10 ^3/uL (0-0.8); Eosinophils % (auto) 0.7 % (0.0-7.0); Hematocrit 40.2 % (36.0-46.0); Hemoglobin 14.4 g/dL (12.2-16.2); Lymphocytes # (auto) 2.2 10 ^3/uL (0.4-5.4); Lymphocytes % (auto) 29.2 % (10.0-50.0); Mean Corpuscular Hemoglobin 30.4 pg (28.0-32.0); Mean Corpuscular Hgb Conc. 35.7 g/dL (32.0-36.0); Mean Corpuscular Volume 85.3 fL (80.0-100.0); Monocytes # (auto) 0.8 10 ^3/uL (0-1.3); Monocytes % (auto) 10.8 % (0.0-12.0); Neutrophils # (auto) 4.4 10 ^3/uL (1.6-8.6); Neutrophils % (auto) 58.8 % (37.0-80.0); Red Blood Cells 4.72 10^6/uL (4.0-5.20); Red Cell Distribution Width 15.1 % (11.8-14.3); White Blood Cell 7.5 10^3/uL (4.4-10.8)
[2022-05-19 00:01] LABS: Albumin 4.2 g/dL (3.4-5.0); BUN/Creatinine Ratio 18.2; Calcium 10.6 mg/dL (8.5-10.1)
[2022-05-19 00:03] LABS: Potassium 2.9 mmol/L (3.5-5.1)
[2022-05-19 00:10] LABS: Bilirubin, Total 0.8 mg/dL (0.2-1.0); Total Protein 8.2 g/dL (6.4-8.2)
[2022-05-19] MEDS ORDERED: HYDROcodone-ACET 5/325MG TAB PO PRN (01:15)
[2022-05-19] MEDS ORDERED: MORPHINE SULFATE INJ 2 MG/ml SYRG IV PRN (01:15)
[2022-05-19] MEDS ORDERED: hydrALAZINE HCL 10 MG TAB PO PRN (01:15)
[2022-05-19] MEDS ORDERED: ONDANSETRON HCL 4 MG/2 ML VIAL IV PRN (01:15)
[2022-05-19] MEDS ORDERED: ACETAMINOPHEN 325 MG TAB PO PRN (01:15)
[2022-05-19] MEDS ORDERED: DEXTROSE (50%) 50ML SYRG IV PRN (01:15)
[2022-05-19] MEDS ORDERED: POTASSIUM CHL 20 Meq TABLET PO ONE ×2 (01:15→15:45)
[2022-05-19 01:28] LABS: Urine Bacteria MOD /hpf (None Seen); Urine Blood 1+ /uL (Negative); Urine WBC 38 /hpf (0 - 5)
[2022-05-19] MEDS ORDERED: SODIUM CHLORIDE 0.9% 1,000 ML IV ONE (01:45)
[2022-05-19 01:46] LABS: Salicylate < 1.7 mg/dL (2.8-20.0)
[2022-05-19 01:56] LABS: Acetaminophen < 2.0 ug/mL (10-30)
[2022-05-19] MEDS ORDERED: amLODIPine BESYLATE 5 MG TAB PO ONE ×2 (02:15→10:30)
[2022-05-19] MEDS ORDERED: ASPirin 81 mg TAB PO ONE (02:15)
[2022-05-19] MEDS ORDERED: NITROGLYCERIN 0.4 MG SL TAB SL PRN (03:00)
[2022-05-19] MEDS: POTASSIUM CHL 20MEQ/100ML 100 ML IV SCH ×2 (03:34→08:47)
[2022-05-19 06:51] LABS: BUN/Creatinine Ratio 18.4; Potassium 3.4 mmol/L (3.5-5.1)
[2022-05-19] MEDS: ACCU-CHEK COMFORT CURVE STRIP VI SCH ×2 (06:51→12:00)
[2022-05-19] MEDS: InsuLIN REG 1unit/0.01ml Soln (100units/ml) SC SCH ×2 (06:51→11:59)
[2022-05-19] MEDS ORDERED: FAMOTIDINE 20 MG TAB PO SCH (10:00)
[2022-05-19] MEDS ORDERED: METOPROLOL TARTRATE 25 MG TAB PO ONE (10:45)
[2022-05-19] MEDS ORDERED: LOSARTAN POTASSIUM 50 MG TAB PO SCH ×2 (11:00→11:15)
[2022-05-19] MEDS ORDERED: POTASSIUM CHL 20MEQ/100ML 100 ML IV ONE (11:15)
[2022-05-19] MEDS ORDERED: AMOXICILLIN/CLAVUL 875 MG TAB PO SCH (11:15)
[2022-05-19] MEDS ORDERED: LOSA-69 PO (11:26)
[2022-05-19] MEDS ORDERED: MET25T PO (11:26)
[2022-05-19] MEDS ORDERED: AMOX-277 PO (11:26)
[2022-05-19 13:38] LABS: Protein, Urine 105.7 mg/dL (0.0-11.9)
[2022-05-19 13:46] LABS: BUN/Creatinine Ratio 15.5; Calcium 9.5 mg/dL (8.5-10.1); Potassium 3.5 mmol/L (3.5-5.1)
[2022-05-19 16:00] VITALS: BP 153/86
[2022-05-19] MEDS ORDERED: AMITRIPTYLINE HCL 10 MG TAB PO SCH (22:00)
[2022-05-19] MEDS ORDERED: METOPROLOL TARTRATE 25 MG TAB PO SCH (22:00)
[2022-05-20] MEDS ORDERED: amLODIPine BESYLATE 5 MG TAB PO SCH (10:00)
[2022-05-20] MEDS ORDERED: VENLAFAXINE HCL 37.5MG TABLET PO SCH (10:00)
== END 2022-05-19 17:05 | disposition home or self-care (01) | DRG 304 ==
LOC: ER 19:03 → EDBD 19:03 → TELE 05-19 01:19
PROVIDERS: ADMIT Nurse Practitioner Family; ATTEND Nurse Practitioner Family
DX: I16.1 Hypertensive emergency (principal); N17.0 Acute kidney failure with tubular necrosis; E87.6 Hypokalemia; Z20.822 Contact with and (suspected) exposure to COVID-19; E03.9 Hypothyroidism, unspecified; E11.22 Type 2 diabetes mellitus with diabetic chronic kidney disease; E78.5 Hyperlipidemia, unspecified; N18.2 Chronic kidney disease, stage 2 (mild); I12.9 Hypertensive chronic kidney disease with stage 1 through stage 4 chronic kidney disease, or unspecified chronic kidney disease; E78.00 Pure hypercholesterolemia, unspecified; J32.9 Chronic sinusitis, unspecified
CPT/HCPCS: 36415; 36600; 70450; 71045; 76775; 80048; 80053; 80329; 81001; 82570; 82805; 82962; 83036; 83605; 83735; 84156; 84484; 85025; 87426; 93005; 93306; 96365; 96366; 96372; G0378; J1815; J3480

== ENCOUNTER 2022-06-11 21:47 | Inpatient (IN) | payer OTHER ==
[~2022-06-11] VITALS: Ht 152.4 cm; Wt 66.5 kg
[~2022-06-11 21:47] MED LIST changes: +AMOX-277 PO; +LOSA-69 PO; +MET25T PO
[2022-06-12 01:11] LABS: Basophils # (auto) 0 10 ^3/uL (0-0.2); Basophils % (auto) 0.4 % (0.0-2.0); Eosinophils # (auto) 0.1 10 ^3/uL (0-0.8); Eosinophils % (auto) 1.5 % (0.0-7.0); Hematocrit 33.4 % (36.0-46.0); Hemoglobin 11.6 g/dL (12.2-16.2); Lymphocytes # (auto) 1.6 10 ^3/uL (0.4-5.4); Lymphocytes % (auto) 26.2 % (10.0-50.0); Mean Corpuscular Hemoglobin 29.9 pg (28.0-32.0); Mean Corpuscular Hgb Conc. 34.9 g/dL (32.0-36.0); Mean Corpuscular Volume 85.6 fL (80.0-100.0); Monocytes # (auto) 0.5 10 ^3/uL (0-1.3); Monocytes % (auto) 8.4 % (0.0-12.0); Neutrophils # (auto) 3.8 10 ^3/uL (1.6-8.6); Neutrophils % (auto) 63.5 % (37.0-80.0); Red Cell Distribution Width 15.2 % (11.8-14.3)
[2022-06-12 01:27] LABS: Albumin 3.1 g/dL (3.4-5.0); Calcium 9.3 mg/dL (8.5-10.1); Potassium 3.1 mmol/L (3.5-5.1)
[2022-06-12 01:30] LABS: Lactic Acid w/Reflex 2.3 mmol/L (0.4-2.0)
[2022-06-12 01:31] LABS: Bilirubin, Total 0.6 mg/dL (0.2-1.0); Total Protein 6.1 g/dL (6.4-8.2)
[2022-06-12] MEDS ORDERED: POTASSIUM EFFERVESENT TAB 25 MEQ PO ONE (04:15)
[2022-06-12] MEDS ORDERED: LACTATED RINGER'S 1,000 ML IV ONE (04:15)
[2022-06-12] MEDS ORDERED: DEXTROSE (50%) 50ML SYRG IV PRN (04:30)
[2022-06-12 04:46] LABS: Urine Bacteria FEW /hpf (None Seen); Urine Blood 1+ /uL (Negative); Urine Specific Gravity 1.005 (1.001-1.035); Urine WBC 1 /hpf (0 - 5)
[2022-06-12 05:00] LABS: Alcohol, Urine < 3.0 mg/dL (0-10); Amphetamine Screen, Urine NEGATIVE (NEGATIVE); Barbiturate Scree,Urine NEGATIVE (NEGATIVE); Benzodiazephine Screen, Urine NEGATIVE (NEGATIVE); Cannabinoid Screen, Urine NEGATIVE (NEGATIVE); Cocaine Screen, Urine NEGATIVE (NEGATIVE); Opiate Scree,Urine NEGATIVE (NEGATIVE); Phencyclidine Screen, Urine NEGATIVE (NEGATIVE)
[2022-06-12 06:14] LABS: Basophils # (auto) 0 10 ^3/uL (0-0.2); Basophils % (auto) 0.5 % (0.0-2.0); Eosinophils # (auto) 0.1 10 ^3/uL (0-0.8); Eosinophils % (auto) 1.7 % (0.0-7.0); Hemoglobin 11.9 g/dL (12.2-16.2); Lymphocytes # (auto) 1.5 10 ^3/uL (0.4-5.4); Lymphocytes % (auto) 24.6 % (10.0-50.0); Mean Corpuscular Hemoglobin 30.2 pg (28.0-32.0); Mean Corpuscular Hgb Conc. 36.1 g/dL (32.0-36.0); Mean Corpuscular Volume 83.6 fL (80.0-100.0); Monocytes # (auto) 0.5 10 ^3/uL (0-1.3); Monocytes % (auto) 8.4 % (0.0-12.0); Neutrophils % (auto) 64.8 % (37.0-80.0); Nucleated Red Blood Cells % 0.1 %; Red Blood Cells 3.94 10^6/uL (4.0-5.20); Red Cell Distribution Width 14.9 % (11.8-14.3); White Blood Cell 6.2 10^3/uL (4.4-10.8)
[2022-06-12 06:44] LABS: BUN/Creatinine Ratio 8.7; Calcium 9.4 mg/dL (8.5-10.1)
[2022-06-12] MEDS ORDERED: SODIUM CHLORIDE 0.9% 1,000 ML IV ONE (07:45)
[2022-06-12] MEDS: ACCU-CHEK COMFORT CURVE STRIP VI SCH ×3 (08:53→17:03)
[2022-06-12] MEDS: InsuLIN REG 1unit/0.01ml Soln (100units/ml) SC SCH ×3 (09:03→17:11)
[2022-06-12] MEDS ORDERED: ATROPINE SULF 1 MG/10ml SYR IV PRN (11:00)
[2022-06-12] MEDS ORDERED: MORPHINE SULFATE INJ 2 MG/ml SYRG IV PRN (12:45)
[2022-06-12] MEDS ORDERED: NITROGLYCERIN 0.4 MG SL TAB SL PRN (12:45)
[2022-06-12] MEDS: HYDROcodone-ACET 5/325MG TAB PO PRN (20:20)
[2022-06-12] MEDS: ACETAMINOPHEN 325 MG TAB PO PRN (20:26)
[2022-06-13] MEDS: InsuLIN REG 1unit/0.01ml Soln (100units/ml) SC SCH ×5 (00:49→22:19)
[2022-06-13] MEDS: GABAPENTIN 100 MG CAP PO SCH ×3 (00:50→22:14)
[2022-06-13] MEDS: ACCU-CHEK COMFORT CURVE STRIP VI SCH ×5 (00:51→22:19)
[2022-06-13 06:15] LABS: Basophils # (auto) 0 10 ^3/uL (0-0.2); Basophils % (auto) 0.2 % (0.0-2.0); Eosinophils # (auto) 0.1 10 ^3/uL (0-0.8); Eosinophils % (auto) 1.1 % (0.0-7.0); Hematocrit 35.7 % (36.0-46.0); Hemoglobin 12.3 g/dL (12.2-16.2); Mean Corpuscular Hemoglobin 29.3 pg (28.0-32.0); Mean Corpuscular Hgb Conc. 34.4 g/dL (32.0-36.0); Mean Corpuscular Volume 85.2 fL (80.0-100.0); Monocytes # (auto) 0.5 10 ^3/uL (0-1.3); Monocytes % (auto) 10.2 % (0.0-12.0); Neutrophils # (auto) 3.6 10 ^3/uL (1.6-8.6); Neutrophils % (auto) 69.5 % (37.0-80.0); Red Cell Distribution Width 15.1 % (11.8-14.3); White Blood Cell 5.2 10^3/uL (4.4-10.8)
[2022-06-13 06:29] LABS: BUN/Creatinine Ratio 12.7; Calcium 9.3 mg/dL (8.5-10.1); Potassium 3.1 mmol/L (3.5-5.1)
[2022-06-13] MEDS: LEVOTHYROXINE SODIUM 100 MCG TAB PO SCH (07:09)
[2022-06-13] MEDS: amLODIPine BESYLATE 5 MG TAB PO SCH (10:07)
[2022-06-13] MEDS: VENLAFAXINE HCL 37.5MG TABLET PO SCH (10:08)
[2022-06-13 10:19] VITALS: BP 155/74
[2022-06-13 10:27] LABS: T3 Total 0.48 ng/mL (0.60-1.81)
[2022-06-13 10:28] LABS: Free T3 1.79 pg/mL (2.3-4.2)
[2022-06-13] MEDS: LOSARTAN POTASSIUM 50 MG TAB PO SCH (11:27)
[2022-06-13] MEDS: ACETAMINOPHEN 325 MG TAB PO PRN (11:27)
[2022-06-13 13:00] VITALS: BP 139/58
[2022-06-13] MEDS ORDERED: POTASSIUM EFFERVESENT TAB 25 MEQ PO ONE (14:00)
[2022-06-13 17:00] VITALS: BP 145/72
[2022-06-13] MEDS: HYDROcodone-ACET 5/325MG TAB PO PRN ×2 (18:17→18:48)
[2022-06-13] MEDS: ONDANSETRON HCL 4 MG/2 ML VIAL IV PRN ×2 (18:17→18:48)
[2022-06-13 20:00] VITALS: BP 135/67
[2022-06-13 22:00] VITALS: BP 135/67
[2022-06-14] MEDS: ACETAMINOPHEN 325 MG TAB PO PRN ×2 (01:45→15:01)
[2022-06-14 05:00] VITALS: BP 151/83
[2022-06-14] MEDS: ACCU-CHEK COMFORT CURVE STRIP VI SCH ×3 (05:54→17:00)
[2022-06-14] MEDS: LEVOTHYROXINE SODIUM 100 MCG TAB PO SCH (06:38)
[2022-06-14] MEDS: InsuLIN REG 1unit/0.01ml Soln (100units/ml) SC SCH ×3 (06:39→18:21)
[2022-06-14 06:50] LABS: Basophils # (auto) 0 10 ^3/uL (0-0.2); Basophils % (auto) 0.4 % (0.0-2.0); Eosinophils # (auto) 0 10 ^3/uL (0-0.8); Eosinophils % (auto) 0.8 % (0.0-7.0); Hemoglobin 12.6 g/dL (12.2-16.2); Lymphocytes % (auto) 18.3 % (10.0-50.0); Mean Corpuscular Hgb Conc. 35.1 g/dL (32.0-36.0); Mean Corpuscular Volume 85.3 fL (80.0-100.0); Monocytes # (auto) 0.5 10 ^3/uL (0-1.3); Monocytes % (auto) 8.4 % (0.0-12.0); Neutrophils % (auto) 72.1 % (37.0-80.0); Red Blood Cells 4.22 10^6/uL (4.0-5.20); White Blood Cell 5.6 10^3/uL (4.4-10.8)
[2022-06-14 07:10] LABS: Calcium 9.5 mg/dL (8.5-10.1); Potassium 3.8 mmol/L (3.5-5.1)
[2022-06-14 07:12] LABS: BUN/Creatinine Ratio 12.5
[2022-06-14 08:00] VITALS: BP_SYST 135; BP_SYST 154; BP_DIAS 67; BP_DIAS 87
[2022-06-14] MEDS: VENLAFAXINE HCL 37.5MG TABLET PO SCH (11:03)
[2022-06-14] MEDS: GABAPENTIN 100 MG CAP PO SCH (11:03)
[2022-06-14] MEDS: amLODIPine BESYLATE 5 MG TAB PO SCH (11:03)
[2022-06-14] MEDS: LOSARTAN POTASSIUM 50 MG TAB PO SCH (11:04)
[2022-06-14 12:00] VITALS: BP 135/68
[2022-06-14] MEDS ORDERED: METOPROLOL SUCCINATE XL 50 MG TAB PO ONE (12:15)
[2022-06-14] MEDS ORDERED: MET25T PO (14:36)
[2022-06-14] MEDS: ONDANSETRON HCL 4 MG/2 ML VIAL IV PRN (15:01)
[2022-06-14 16:00] VITALS: BP 128/61
[2022-06-15] MEDS ORDERED: METOPROLOL SUCCINATE XL 50 MG TAB PO SCH (10:00)
== END 2022-06-14 19:22 | disposition home health service (06) | DRG 309 ==
LOC: EDBD 21:47 → ER 21:47 → TELE 06-12 12:37 → TELE-CENTR 06-13 08:50
PROVIDERS: ADMIT Hospitalist; ATTEND Hospitalist
DX: R00.1 Bradycardia, unspecified (principal); E87.1 Hypo-osmolality and hyponatremia; N17.9 Acute kidney failure, unspecified; E87.6 Hypokalemia; T50.905A Adverse effect of unspecified drugs, medicaments and biological substances, initial encounter; E03.9 Hypothyroidism, unspecified; E11.9 Type 2 diabetes mellitus without complications; E78.00 Pure hypercholesterolemia, unspecified; Z20.822 Contact with and (suspected) exposure to COVID-19; E86.0 Dehydration; F41.9 Anxiety disorder, unspecified; I10 Essential (primary) hypertension; R82.4 Acetonuria; Z88.8 Allergy status to other drugs, medicaments and biological substances; Z79.899 Other long term (current) drug therapy; Y92.89 Other specified places as the place of occurrence of the external cause
CPT/HCPCS: 36415; 70551; 71045; 80048; 80053; 80307; 81001; 82962; 83605; 83735; 83880; 84436; 84443; 84480; 84481; 84484; 85025; 87426; 93005; 96360; 96361; 96372; 99291; G0378; J1815; J2405

== ENCOUNTER 2022-06-22 18:45 | Observation (INO) | payer OTHER ==
[~2022-06-22] VITALS: Ht 165.1 cm; Wt 66.7 kg
[~2022-06-22 18:45] MED LIST changes: -AMOX-277 PO; -CLON0.1T PO; -LEVO-28 PO; -PRED20TA2 PO
[2022-06-22] MEDS ORDERED: SODIUM CHLORIDE 0.9% 1,000 ML IV ONE ×2 (19:45→23:00)
[2022-06-22 19:58] LABS: Basophils # (auto) 0 10 ^3/uL (0-0.2); Basophils % (auto) 0.5 % (0.0-2.0); Eosinophils # (auto) 0.1 10 ^3/uL (0-0.8); Eosinophils % (auto) 1.2 % (0.0-7.0); Hematocrit 35.2 % (36.0-46.0); Lymphocytes # (auto) 1.5 10 ^3/uL (0.4-5.4); Lymphocytes % (auto) 20.9 % (10.0-50.0); Mean Corpuscular Hemoglobin 30.1 pg (28.0-32.0); Mean Corpuscular Hgb Conc. 34.2 g/dL (32.0-36.0); Mean Corpuscular Volume 88.2 fL (80.0-100.0); Monocytes # (auto) 0.4 10 ^3/uL (0-1.3); Monocytes % (auto) 6.3 % (0.0-12.0); Neutrophils # (auto) 5.1 10 ^3/uL (1.6-8.6); Neutrophils % (auto) 71.1 % (37.0-80.0); Red Cell Distribution Width 15.4 % (11.8-14.3); White Blood Cell 7.1 10^3/uL (4.4-10.8)
[2022-06-22 20:07] LABS: Albumin 3.2 g/dL (3.4-5.0); Calcium 9.8 mg/dL (8.5-10.1); Potassium 3.8 mmol/L (3.5-5.1)
[2022-06-22 20:09] LABS: BUN/Creatinine Ratio 11.6
[2022-06-22 20:11] LABS: Bilirubin, Total 0.7 mg/dL (0.2-1.0); Total Protein 6.1 g/dL (6.4-8.2)
[2022-06-22 23:26] LABS: Lactic Acid w/Reflex 2.9 mmol/L (0.4-2.0)
[2022-06-23] MEDS ORDERED: DOCUSATE SOD 100 MG CAP PO PRN (00:45)
[2022-06-23] MEDS: SODIUM CHLORIDE 0.9% 1,000 ML IV SCH ×2 (00:45→17:25)
[2022-06-23] MEDS ORDERED: NITROGLYCERIN 0.4 MG SL TAB SL PRN (00:45)
[2022-06-23] MEDS ORDERED: MORPHINE SULFATE INJ 2 MG/ml SYRG IV PRN (00:45)
[2022-06-23] MEDS ORDERED: DEXTROSE (50%) 50ML SYRG IV PRN (01:00)
[2022-06-23] MEDS ORDERED: SODIUM CHLORIDE 0.9% 1,000 ML IV ONE ×2 (02:30→23:45)
[2022-06-23] MEDS: NOREPINEPHRINE 8 MG/250ML KIT 250 ML IV SCH (03:19)
[2022-06-23 04:37] LABS: Basophils # (auto) 0 10 ^3/uL (0-0.2); Basophils % (auto) 0.5 % (0.0-2.0); Eosinophils # (auto) 0.1 10 ^3/uL (0-0.8); Eosinophils % (auto) 1.6 % (0.0-7.0); Hematocrit 35.7 % (36.0-46.0); Hemoglobin 12.3 g/dL (12.2-16.2); Lymphocytes # (auto) 1.4 10 ^3/uL (0.4-5.4); Lymphocytes % (auto) 18.2 % (10.0-50.0); Mean Corpuscular Hemoglobin 30.4 pg (28.0-32.0); Mean Corpuscular Hgb Conc. 34.5 g/dL (32.0-36.0); Mean Corpuscular Volume 88.3 fL (80.0-100.0); Monocytes # (auto) 0.5 10 ^3/uL (0-1.3); Monocytes % (auto) 6.7 % (0.0-12.0); Neutrophils # (auto) 5.8 10 ^3/uL (1.6-8.6); Red Blood Cells 4.04 10^6/uL (4.0-5.20); Red Cell Distribution Width 15.6 % (11.8-14.3); White Blood Cell 7.9 10^3/uL (4.4-10.8)
[2022-06-23] MEDS: ONDANSETRON HCL 4 MG/2 ML VIAL IV PRN (04:49)
[2022-06-23 04:54] LABS: Potassium 3.3 mmol/L (3.5-5.1)
[2022-06-23 04:58] LABS: BUN/Creatinine Ratio 13.9; Calcium 9.1 mg/dL (8.5-10.1)
[2022-06-23] MEDS: InsuLIN REG 1unit/0.01ml Soln (100units/ml) SC SCH ×3 (07:00→17:00)
[2022-06-23] MEDS: ACCU-CHEK COMFORT CURVE STRIP VI SCH ×4 (07:00→22:29)
[2022-06-23] MEDS: ACETAMINOPHEN 325 MG TAB PO PRN ×2 (12:30→19:35)
[2022-06-24] MEDS: InsuLIN REG 1unit/0.01ml Soln (100units/ml) SC SCH ×5 (00:12→21:25)
[2022-06-24 06:31] LABS: Basophils # (auto) 0 10 ^3/uL (0-0.2); Basophils % (auto) 0.4 % (0.0-2.0); Eosinophils # (auto) 0.1 10 ^3/uL (0-0.8); Lymphocytes # (auto) 0.9 10 ^3/uL (0.4-5.4); Lymphocytes % (auto) 16.2 % (10.0-50.0); Mean Corpuscular Hemoglobin 30.6 pg (28.0-32.0); Mean Corpuscular Hgb Conc. 35.2 g/dL (32.0-36.0); Mean Corpuscular Volume 86.9 fL (80.0-100.0); Monocytes # (auto) 0.4 10 ^3/uL (0-1.3); Monocytes % (auto) 6.5 % (0.0-12.0); Neutrophils # (auto) 4.3 10 ^3/uL (1.6-8.6); Neutrophils % (auto) 74.9 % (37.0-80.0); Nucleated Red Blood Cells % 0.1 %; Red Blood Cells 3.91 10^6/uL (4.0-5.20); Red Cell Distribution Width 15.2 % (11.8-14.3); White Blood Cell 5.7 10^3/uL (4.4-10.8)
[2022-06-24 06:38] LABS: BUN/Creatinine Ratio 14.4; Calcium 9.2 mg/dL (8.5-10.1); Potassium 3.5 mmol/L (3.5-5.1)
[2022-06-24] MEDS: ACCU-CHEK COMFORT CURVE STRIP VI SCH ×4 (11:30→21:25)
[2022-06-24] MEDS: SODIUM CHLORIDE 0.9% 1,000 ML IV SCH (13:01)
[2022-06-24] MEDS: ACETAMINOPHEN 325 MG TAB PO PRN (13:02)
[2022-06-24] MEDS: NOREPINEPHRINE 8 MG/250ML KIT 250 ML IV SCH (15:23)
[2022-06-24] MEDS: ONDANSETRON HCL 4 MG/2 ML VIAL IV PRN (21:51)
[2022-06-24 22:00] VITALS: BP 148/53
[2022-06-24 22:20] VITALS: BP 148/53
[2022-06-25] MEDS: SODIUM CHLORIDE 0.9% 1,000 ML IV SCH ×2 (03:00→19:25)
[2022-06-25 05:00] VITALS: BP 141/65
[2022-06-25 05:15] LABS: Basophils # (auto) 0.1 10 ^3/uL (0-0.2); Basophils % (auto) 0.8 % (0.0-2.0); Eosinophils # (auto) 0.1 10 ^3/uL (0-0.8); Eosinophils % (auto) 1.9 % (0.0-7.0); Hematocrit 35.1 % (36.0-46.0); Hemoglobin 12.4 g/dL (12.2-16.2); Lymphocytes # (auto) 1.1 10 ^3/uL (0.4-5.4); Lymphocytes % (auto) 16.2 % (10.0-50.0); Mean Corpuscular Hemoglobin 30.6 pg (28.0-32.0); Mean Corpuscular Hgb Conc. 35.2 g/dL (32.0-36.0); Mean Corpuscular Volume 86.9 fL (80.0-100.0); Monocytes # (auto) 0.4 10 ^3/uL (0-1.3); Monocytes % (auto) 6.1 % (0.0-12.0); Neutrophils # (auto) 4.9 10 ^3/uL (1.6-8.6); Nucleated Red Blood Cells % 0.1 %; Red Blood Cells 4.04 10^6/uL (4.0-5.20); Red Cell Distribution Width 15.6 % (11.8-14.3); White Blood Cell 6.6 10^3/uL (4.4-10.8)
[2022-06-25 05:35] LABS: BUN/Creatinine Ratio 11.5; Calcium 9.6 mg/dL (8.5-10.1)
[2022-06-25] MEDS: InsuLIN REG 1unit/0.01ml Soln (100units/ml) SC SCH ×4 (07:00→21:50)
[2022-06-25] MEDS: ACCU-CHEK COMFORT CURVE STRIP VI SCH ×4 (07:02→21:55)
[2022-06-25] MEDS: LEVOTHYROXINE SODIUM 100 MCG TAB PO SCH (07:02)
[2022-06-25 09:00] VITALS: BP 119/68
[2022-06-25] MEDS: FERROUS SULFATE 325mg EC TAB PO SCH (10:12)
[2022-06-25 13:00] VITALS: BP 148/63
[2022-06-25 17:00] VITALS: BP 106/67
[2022-06-25] MEDS: ACETAMINOPHEN 325 MG TAB PO PRN (21:54)
[2022-06-25 22:00] VITALS: BP 112/48
[2022-06-26] MEDS: hydrALAZINE HCL 20 MG/ML VL IV PRN ×2 (01:39→09:52)
[2022-06-26 05:00] VITALS: BP 141/61
[2022-06-26 06:38] LABS: Basophils # (auto) 0 10 ^3/uL (0-0.2); Basophils % (auto) 0.2 % (0.0-2.0); Eosinophils # (auto) 0.1 10 ^3/uL (0-0.8); Eosinophils % (auto) 1.9 % (0.0-7.0); Hematocrit 35.4 % (36.0-46.0); Hemoglobin 12.2 g/dL (12.2-16.2); Lymphocytes # (auto) 1.3 10 ^3/uL (0.4-5.4); Lymphocytes % (auto) 22.7 % (10.0-50.0); Mean Corpuscular Hgb Conc. 34.4 g/dL (32.0-36.0); Mean Corpuscular Volume 87.1 fL (80.0-100.0); Monocytes # (auto) 0.4 10 ^3/uL (0-1.3); Neutrophils # (auto) 3.8 10 ^3/uL (1.6-8.6); Neutrophils % (auto) 67.2 % (37.0-80.0); Nucleated Red Blood Cells % 0.1 %; Red Blood Cells 4.06 10^6/uL (4.0-5.20); Red Cell Distribution Width 15.6 % (11.8-14.3); White Blood Cell 5.6 10^3/uL (4.4-10.8)
[2022-06-26 06:42] LABS: BUN/Creatinine Ratio 14.3; Calcium 9.6 mg/dL (8.5-10.1); Potassium 3.4 mmol/L (3.5-5.1)
[2022-06-26] MEDS: LEVOTHYROXINE SODIUM 100 MCG TAB PO SCH (06:43)
[2022-06-26] MEDS: InsuLIN REG 1unit/0.01ml Soln (100units/ml) SC SCH ×2 (06:43→11:30)
[2022-06-26] MEDS: ACCU-CHEK COMFORT CURVE STRIP VI SCH ×2 (06:44→11:30)
[2022-06-26 09:00] VITALS: BP 168/71
[2022-06-26] MEDS: FERROUS SULFATE 325mg EC TAB PO SCH (09:51)
[2022-06-26] MEDS ORDERED: amLODIPine BESYLATE 5 MG TAB PO SCH (12:00)
[2022-06-26] MEDS: SODIUM CHLORIDE 0.9% 1,000 ML IV SCH (12:05)
[2022-06-26 13:00] VITALS: BP 142/68
[2022-06-26 13:25] VITALS: BP 168/71
[2022-06-26 15:00] VITALS: BP 161/80
== END 2022-06-26 16:15 ==
LOC: EDBD 18:45 → ER 18:45 → TELE 06-23 00:38 → TELE-CENTR 06-24 20:00
PROVIDERS: ADMIT Nurse Practitioner Family; ATTEND Internal Medicine
DX: I95.9 Hypotension, unspecified (principal); Z20.822 Contact with and (suspected) exposure to COVID-19; R57.1 Hypovolemic shock; E87.1 Hypo-osmolality and hyponatremia; E78.5 Hyperlipidemia, unspecified; I10 Essential (primary) hypertension; M54.9 Dorsalgia, unspecified; E87.20 Acidosis, unspecified; R53.81 Other malaise; E11.40 Type 2 diabetes mellitus with diabetic neuropathy, unspecified; E03.9 Hypothyroidism, unspecified; F32.9 Major depressive disorder, single episode, unspecified; F41.9 Anxiety disorder, unspecified; Z88.6 Allergy status to analgesic agent; Z79.899 Other long term (current) drug therapy
CPT/HCPCS: 36415; 71045; 80048; 80053; 82962; 83605; 84484; 85025; 87426; 87804; 93005; 96361; 96365; 96366; 96372; 96375; 96376; 97110; 97116; 97163; 97530; 99291; G0378; J0360; J1815; J2405